=== PATIENT | male | born 1975 | race Caucasian/White ===

== ENCOUNTER 2016-06-01 18:06 | Emergency (ER) | payer SELFPAY ==
[~2016-06-01] VITALS: Ht 165.1 cm; Wt 66.0 kg
[2016-06-01 18:12] VITALS: BP 132/87; PULSE 91; RESP 16; TEMP 98.4; O2SAT 99
[2016-06-01] MEDS ORDERED: TETANUS/DIPHTHERIA TOXOID ADULT 0.5 ML VIAL IM ONE (18:30)
[2016-06-01] MEDS ORDERED: IBUPROFEN 800 MG TAB PO ONE (18:30)
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
[2016-06-01] MEDS ORDERED: HYDR-3533 PO (21:19)
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
[2016-06-01] MEDS ORDERED: IBUP800T23 PO (21:20)
[2016-06-01 21:22] VITALS: BP 130/82
== END 2016-06-01 21:27 | disposition home or self-care (01) ==
LOC: PHEFT 18:06
DX: S52.571A Other intraarticular fracture of lower end of right radius, initial encounter for closed fracture (principal); S00.81XA Abrasion of other part of head, initial encounter; Z23 Encounter for immunization; V29.9XXA Motorcycle rider (driver) (passenger) injured in unspecified traffic accident, initial encounter; Y93.55 Activity, bike riding; Y92.9 Unspecified place or not applicable
CPT/HCPCS: 29125; 70450; 72125; 73110; 73200; 90471; 90714

== ENCOUNTER 2016-10-25 15:49 | Emergency (ER) | payer SELFPAY ==
[~2016-10-25] VITALS: Ht 165.1 cm; Wt 63.0 kg
[~2016-10-25 15:49] MED LIST: HYDR-3533 PO; IBUP800T23 PO
[2016-10-25 15:53] VITALS: BP 135/90; PULSE 67; RESP 16; TEMP 97.5; O2SAT 100
[2016-10-25] MEDS ORDERED: KETOROLAC TROMETHAMINE 30 MG/ML (IVP) VIAL IVP ONE (16:15)
[2016-10-25] MEDS ORDERED: HYDROmorphone HCL PF 2 MG/ML VIAL IM ONE (16:15)
[2016-10-25] MEDS ORDERED: ONDANSETRON HCL 4 MG/2 ML VIAL IVP ONE (16:15)
[2016-10-25] MEDS ORDERED: SODIUM CHLORIDE 0.9% FLUSH 10 ML FLUSH IVF PRN (16:15)
--- NOTE | 2016-10-25 16:18 | PD ---
HPI . Left flank pain Chief Complaint: Flank/Kidney Pain Time Seen by Provider: 16:11 Travel History International Travel<30 days: No Contact w/Intl Traveler<30days: No Traveled to known affect area: No History of Present Illness HPI Patient presents with the acute onset of left flank pain. It started just prior to arrival. It was associated with diaphoresis. He denies any dysuria, frequency, urgency or hematuria but states that his stream was not normal this afternoon. He states that it was normal prior to the onset of the pain. He denies any previous similar history. He states that the pain was a 9/10 at its maximum but that it is now easing off a little. He describes it as a crampy pain. [facility] Past Medical History Medical History: Denies Significant Hx Past Surgical History Surgical History: No Previous Surgery Social History Alcohol Use: Yes (socially) Tobacco Use: No Substance Use: No Allergies-Medications (Allergen,Severity, Reaction): Coded Allergies: No Known Allergies (Unverified , 10/25/16) Reported Meds & Prescriptions Reported Meds & Active Scripts Active No Active Prescriptions or Reported Medications Review of Systems Except as stated in HPI: all other systems reviewed are Neg General / Constitutional: Positive: Other (diaphoresis), No: Fever, Chills Gastrointestinal: Positive: Abdominal Pain, No: Nausea, Vomiting Genitourinary: Positive: Flank Pain, No: Urgency, Frequency, Dysuria Physical Exam Narrative GENERAL: The patient looks pretty comfortable right now. SKIN: Warm and dry. HEAD: Atraumatic. Normocephalic. EYES: Pupils equal and round. ENT: No nasal bleeding or discharge. Mucous membranes pink and moist. NECK: Trachea midline. CARDIOVASCULAR: Regular rate and rhythm. RESPIRATORY: No accessory muscle use. GASTROINTESTINAL: Abdomen soft, non-tender, nondistended. No CVA tenderness. MUSCULOSKELETAL: No obvious deformities. No edema. NEUROLOGICAL: Awake and alert. No obvious cranial nerve deficits. Motor grossly within normal limits. Normal speech. PSYCHIATRIC: Appropriate mood and affect; insight and judgment normal. Data Data Last Documented VS Vital Signs Date Time Temp Pulse Resp B/P Pulse Ox O2 Delivery O2 Flow Rate FiO2 10/25/16 17:30 81 16 112/66 99 Room Air 10/25/16 15:53 97.5 Orders Urinalysis - C+S If Indicated (10/25/16 16:14) Ct Abd/Pel W/O Iv Contrast (10/25/16 16:14) Iv Access Insert/Monitor (10/25/16 16:14) Ketorolac Inj (Toradol Inj) (10/25/16 16:15) Ondansetron Inj (Zofran Inj) (10/25/16 16:15) Sodium Chloride 0.9% Flush (Ns Flush) (10/25/16 16:15) Hydromorphone Pf Inj (Dilaudid Pf Inj) (10/25/16 16:15) Hydromorphone Pf Inj (Dilaudid Pf Inj) (10/25/16 16:45) Labs Laboratory Tests Test 10/25/16 16:19 Urine Collection Type CLEAN CATCH Urine Color YELLOW Urine Turbidity CLEAR Urine pH 6.0 Urine Specific Douglas 1.022 Urine Protein TRACE mg/dL Urine Glucose (UA) NEG mg/dL Urine Ketones 15 mg/dL Urine Occult Blood SMALL Urine Nitrite NEG Urine Bilirubin NEG Urine Leukocyte Esterase NEG Urine RBC 20-24 /hpf Urine WBC 0-2 /hpf Urine Squamous Epithelial 0-5 /hpf Cells Urine Amorphous Sediment FEW Urine Mucus FEW /lpf Microscopic Urinalysis Comment CULT NOT INDICATED Urine Collection Time 16:19 [facility] Medical Decision Making Medical Screen Exam Complete: Yes Emergency Medical Condition: Yes Differential Diagnosis Differential diagnosis of flank pain includes but is not limited to kidney stone , pyelonephritis, musculoskeletal pain, PE Narrative Course Patient presents for the evaluation of acute left flank pain. He will be evaluated for possible kidney stone. UA shows 20-[address] shows no evidence of stone. Diagnosis Primary Impression: Left flank pain Additional Impressions: Hematuria Renal cyst, right Referrals: Wan Garcia MD Patient Instructions: Acute Hematuria (DC), Flank Pain (ED), General Instructions, Kidney Cyst (ED), Narcotic given in the ED Scripts Ibuprofen 800 Mg [id number] Mg PO Q8H PRN (Pain/Inflammation) #60 TAB Ref 0 Prov:Candi Cain MD 10/25/16 Disposition: 01 DISCHARGE HOME Condition: Stable Candi Cain MD October 25, 2016 16:18
[2016-10-25 16:39] LABS: BLOOD, URINE SMALL (NEG); GLUCOSE,URINE NEG (NEG); KETONE, URINE 15 mg/dL (NEG); NITRITE,URINE NEG (NEG)
[2016-10-25] MEDS ORDERED: HYDROmorphone HCL PF 2 MG/ML VIAL IV PUSH ONE (16:45)
[2016-10-25 16:49] LABS: METHOD OF COLLECTION CLEAN CATCH; MUCUS URINE FEW /lpf (OCC); URINE COLOR YELLOW (YELLW/STRAW)
[2016-10-25 16:50] LABS: COMMENT (UR) CULT NOT INDICATED; CULTURE IF INDICATED CULT NOT INDICATED; SQUAMOUS EPITHELIAL CELL URINE 0-5 /hpf (0-5); WBC, URINE 0-2 /hpf (0-5)
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
[2016-10-25 17:30] VITALS: BP 112/66; PULSE 81; RESP 16; O2SAT 99
[2016-10-25] MEDS ORDERED: IBUP800T23 PO (17:51)
== END 2016-10-25 18:10 | disposition home or self-care (01) ==
LOC: PHED 15:49
DX: N28.1 Cyst of kidney, acquired (principal); R31.9 Hematuria, unspecified; R10.84 Generalized abdominal pain
CPT/HCPCS: 74176; 81001; 96374; 96375; 99285; J1170; J1885; J2405